=== PATIENT | female | born 1995 | race Caucasian/White ===

== ENCOUNTER → 2019-02-27 | Outpatient (CLI) | payer BC | LOC: MC.RAD 08:15 | DX: N63.13 Unspecified lump in the right breast, lower outer quadrant (principal) ==

== ENCOUNTER → 2019-09-04 | Outpatient (CLI) | payer BC | LOC: MC.RAD 08:53 | DX: N63.10 Unspecified lump in the right breast, unspecified quadrant (principal) ==

== ENCOUNTER → 2019-09-16 | Outpatient (CLI) | payer BC | LOC: MC.RAD 09:53 | DX: N63.21 Unspecified lump in the left breast, upper outer quadrant (principal) ==